=== PATIENT | male | born 1990 | race Two or more races ===

== ENCOUNTER 2017-08-30 09:15 | Emergency (ER) | payer OTHER ==
[2017-08-30] VITALS (14 sets, daily range): BP systolic 112–180; BP diastolic 50–91
[~2017-08-30] VITALS: Ht 175.3 cm; Wt 158.8 kg
[2017-08-30] MEDS ORDERED: Ketamine HCl 100mg syr IV ONE ×2 (09:30→11:45)
[2017-08-30] MEDS ORDERED: Morphine Sulfate 4mg/ml Inj IVP ONE ×2 (09:30→14:15)
--- NOTE | 2017-08-30 09:30 | Emergency Room Report ---
History of Present Illness General Chief Complaint: Lower Extremity Injury Source: Patient Present Illness HPI 26-year-old male, with left ankle pain and swelling. 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 He twisted his left ankle and now complaining of severe pain to his left ankle. Also with some mild right-sided shoulder pain however full range of motion of shoulder. He received morphine upon coming to the emergency room Allergies: Coded Allergies: Shrimp (Verified Allergy, Unknown, 08/30/17) Patient History Past Medical History: see triage record Past Surgical History: none Pertinent Family History: none Reviewed Nursing Documentation: PMH: Agreed; PSxH: Agreed Nursing Documentation-PMH Past Medical History: No Stated History Review of Systems All Other Systems: negative except mentioned in HPI Physical Exam Vital Signs Date Time Temp Pulse Resp B/P (MAP) Pulse Ox O2 Delivery O2 Flow Rate FiO2 08/30/17 09:10 98.6 90 18 137/105 99 Room Air 98.6 Sp02 EP Interpretation: reviewed, normal General Appearance: normal inspection, well appearing, no apparent distress, alert, GCS 15, non-toxic Head: normocephalic, atraumatic Eyes: bilateral eye normal inspection, bilateral eye PERRL, bilateral eye EOMI ENT: normal ENT inspection, normal pharynx, normal voice, moist mucus membranes Neck: normal inspection, full range of motion, supple, no bony tend Respiratory: normal inspection, lungs clear, normal breath sounds, no respiratory distress, no retraction, no wheezing, speaking full sentences, chest symmetrical Cardiovascular #1: normal inspection, regular rate, rhythm, no edema, normal capillary refill Cardiovascular #2: 2+ radial (R), 2+ radial (L) Gastrointestinal: normal inspection, non tender, soft, non-distended, no guarding Genitourinary: no CVA tenderness Musculoskeletal: other - Left ankle with gross bony deformity, tender to palpation, limited range of motion secondary to pain, able to bend knee and hip without issue. Distal pulses are intact. Right shoulder with some mild tenderness anteriorly, full range of motion of shoulder. No other signs of trauma of other extremities Neurologic: normal inspection, alert, oriented x3, responsive, motor strength/ tone normal, sensory intact, normal gait, speech normal Psychiatric: normal inspection, judgement/insight normal, memory normal Skin: normal inspection, normal color, no rash, warm/dry, well hydrated, normal turgor Procedures Splinting Splinting : Consent: Written Location: L ankle Hand-Made Type: plaster Splint: poserior short Pre-Proc Neuro Vasc Exam: normal Post-Proc Neuro Vasc Exam: normal Patient Tolerated: Well Complications: None Joint Reduction Joint Reduction : Consent: Written Joint Reduction Site: other - L ankle Procedural Sedation: Yes Reduction Attempts: Other - 2 Pre-Procedure NV Exam: Yes Post-Procedure NV Exam: Yes Post Joint Reduction Film: joint reduced Patient Tolerated: Well Complications: None Procedural Sedation Consent: Written Pre-Sedation Assessment: Eval. Immed. Prior to Sed, Pre-proc Edu. done, Plan for Sedation Discuss Airway Assessment (Malampati): I Heart: normal Lungs: normal Abdomen: normal Extremities: normal Procedures/Plans: Closed Reduction Plan for Moderate Sedation: Other - ketamine ASA Score: I Start Time: 10:24 End Time: 10:30 Communication: No Apparent Limitation Mental Status: Awake Respiration: Unlabored Skin Condition: WNL Abdomen: WNL Nausea: NO Vomiting: NO Medical Decision Making Diagnostic Impression: Primary Impression: Ankle fracture, left ER Course 26-year-old male with left ankle swelling after twisting it DDX: Dislocation/fracture Plan: Pain control XR ER course: Pt sedated with ketamine, ankle fx/dislocation reduced Patient had procedural sedation and reduction, with ketamine, after splint placement patient moved Required additional reduction and another sedation Trimalleolar fracture extremely unstable Another procedural sedation performed, with ketamine Placed in another splint Distal pulses remain intact dw Dr Arellano, PT ok to be DC home with ortho fu strict non weightbearing, on crutches Disposition: Patient is to be discharged home Patient instructed to keep splint on at all times, and to follow up with orthopedic surgery in 5 days Patient educated to rest, ice, and elevate extremity and to avoid vigorous activity. Strict precautions discussed with patient on when to return to the emergency room including increased redness or swelling joints/cyanosis of joints, increased pain/swelling of extremity, fever or chills, which could indicate severe illness. Please note that this Emergency Department Report was dictated using Page[employer] maker technology software, occasionally this can lead to erroneous entry secondary to interpretation by the dictation equipment. Xray ordered: L Tib-fib 3 view Indication: Pain Impression: Limited exam, as described Interpretation by myself and radiologist Ankle fracture/dislocation-see separate report No evidence of proximal tibial or fibular shaft fracture Electronically signed by Noe Harkins MD Xray: Left ankle Complete Indication: Pain EP Interpretation: Yes and radiologist Findings: There is a fracture dislocation of the ankle. There is a oblique fracture of the distal fibula, with the distal fragment displaced posteriorly over one bone width, and overriding by several centimeters. The talus is displaced laterally relative to the tibial articular surface by one bone width, and there is also posterior rotation of the tibia relative to the talus. The lateral aspect of the tibia is also fractured, with the fragment overlying the dome of the talus. This probably also involves the posterior malleolus. The medial malleolus is intact but there is obvious ligamentous injury. Impression: Complex left ankle fracture dislocation, as described Electronically signed by Noe Harkins MD Chest X-ray CXR: Ordered: Yes 1 view Indication: pain EP interpretation: Yes Interpretation: No consolidation, no effusion, no PTX, no acute cardiopulmonary disease Impression: No acute disease Electronically signed by Noe Harkins MD Xray: Left ankle Complete Indication: Post reduction EP Interpretation: Yes interval reduction with improvement of L ankle fx Electronically signed by Noe Harkins MD Last Vital Signs Date Time Temp Pulse Resp B/P (MAP) Pulse Ox O2 Delivery O2 Flow Rate FiO2 08/30/17 09:10 98.6 90 18 137/105 99 Room Air 98.6 Disposition: HOME, SELF-CARE Condition: Improved Scripts Ibuprofen* (MOTRIN*) 600 Mg Tablet 600 MG ORAL Q8H PRN for For Pain, #30 TAB 0 Refills Prov: Noe Harkins M.D. 08/30/17 Hydrocodone Bit/Acetaminophen 5-325* (NORCO 5-325*) 1 Each Tablet 1 TAB ORAL Q6H PRN for For Pain, #20 TAB 0 Refills Prov: Noe Harkins M.D. 08/30/17 Noe Harkins M.D. Aug 30, 2017 09:30
[2017-08-30] MEDS ORDERED: NORCO 5-325 TA1 EACH ORAL (10:22)
[2017-08-30] MEDS ORDERED: IBUPROFEN600 MG ORAL (10:22)
[2017-08-30] MEDS: Ketamine HCl 100mg syr IV ONE ×6 (10:25→12:10)
--- NOTE | 2017-08-30 11:40 | Diagnostic Imaging Report ---
Indication: Reason For Exam: PAIN Technique: One view of the chest Comparison: none Findings: Body habitus limits evaluation. Possible calcified nodule seen in the right lateral lung base, versus artifact. Lungs and pleural spaces are otherwise clear. Heart size is normal Impression: No definite acute process
--- NOTE | 2017-08-30 11:45 | Diagnostic Imaging Report ---
Indication: Pain Technique: 3 views of the left ankle Comparison: none Findings: There is a fracture dislocation of the ankle. There is a oblique fracture of the distal fibula, with the distal fragment displaced posteriorly over one bone width, and overriding by several centimeters. The talus is displaced laterally relative to the tibial articular surface by one bone width, and there is also posterior rotation of the tibia relative to the talus. The lateral aspect of the tibia is also fractured, with the fragment overlying the dome of the talus. This probably also involves the posterior malleolus. The medial malleolus is intact but there is obvious ligamentous injury. Impression: Complex left ankle fracture dislocation, as described
--- NOTE | 2017-08-30 11:46 | Diagnostic Imaging Report ---
Indication: Pain, trauma Technique: One view of the left tibia and fibula Comparison: none Findings: Exam is limited due to inability to obtain more than one view due to ankle injury. Single AP view of the tibia and fibula demonstrates ankle fracture dislocation, described in detail on separate ankle radiograph report. No proximal fracture demonstrated Impression: Limited exam, as described Ankle fracture/dislocation-see separate report No evidence of proximal tibial or fibular shaft fracture
--- NOTE | 2017-08-30 15:51 | Diagnostic Imaging Report ---
Indication: Pain, post reduction Technique: 2 views of the left ankle Comparison: One hour earlier Findings: Interim further close reduction in repeat splinting of previously demonstrated left ankle fracture dislocation, with improved anatomic alignment. Impression: Further improved alignment of previously demonstrated left ankle fracture/dislocation, post repeat closed reduction and splinting
--- NOTE | 2017-08-30 16:00 | Diagnostic Imaging Report ---
Indication: Pain, fracture, final post reduction Technique: 2 views of the left ankle Comparison: One half hour earlier Findings: Interim casting of previously demonstrated ankle fracture dislocation. Still some posterior and lateral subluxation of the talus Impression: Post closed reduction and casting, as described
--- NOTE | 2017-08-31 10:14 | Diagnostic Imaging Report ---
Indication: Left ankle pain Technique: XRAY Ankle 2v L Comparison: Examination from earlier the same day at 0930 hours Findings: There is now an overlying cast. Posterior and lateral malleolus fractures are again present. There is improved alignment with persistent lateral and posterior subluxation of the talus in relation to the tibia. Impression: Status post reduction with overlying cast. Improved tibiotalar alignment but persistent widening of the medial ankle mortise and posterior subluxation of the talus. Again fractures of the posterior and lateral malleoli.
--- NOTE | 2017-08-31 10:16 | Diagnostic Imaging Report ---
Indication: Left foot pain Technique: Left foot 3 views Comparison: None Findings: There is no fracture of the left foot. Posterior calcaneal enthesophyte is seen. Please refer to separate dictation of the ankle for description of fracture dislocation of the ankle. Impression: No fracture of the left foot. Please refer to separate dictation of the ankle for description of ankle fracture dislocation.
== END 2017-08-30 15:09 | disposition home or self-care (01) ==
LOC: EDBD 09:15 → EMR 09:55 → EDBD 09:55 → EMR 15:09
DX: S82.432A Displaced oblique fracture of shaft of left fibula, initial encounter for closed fracture (principal); X50.1XXA Overexertion from prolonged static or awkward postures, initial encounter; Y92.69 Other specified industrial and construction area as the place of occurrence of the external cause; Y99.0 Civilian activity done for income or pay
CPT/HCPCS: 27788; 71045; 73590; 73600; 73620; 96361; 96374; 96375; 99284; J2270; 29125; 29515